=== PATIENT | female | born 1950 | race Caucasian/White ===

== ENCOUNTER 2016-07-10 11:20 | Inpatient (IN) | payer MEDICARE ==
[2016-07-10] VITALS (9 sets, daily range): BP systolic 90–134; BP diastolic 54–80
[~2016-07-10] VITALS: Ht 152.4 cm; Wt 69.2 kg
[2016-07-10] MEDS ORDERED: SODIUM CHLORIDE FLUSH 10ML SYR IVF ONE (12:30)
[2016-07-10] MEDS ORDERED: ACETAMINOPHEN 325 MG TABLET PO ONE (12:30)
[2016-07-10] MEDS ORDERED: HYDR12.53 PO (12:33)
[2016-07-10] MEDS ORDERED: MULT-717 PO (12:33)
[2016-07-10] MEDS ORDERED: MINO100T2 PO (12:33)
[2016-07-10] MEDS ORDERED: ASPI81TA14 PO (12:33)
[2016-07-10] MEDS ORDERED: CHOL40002 PO (12:33)
[2016-07-10] MEDS ORDERED: ATOR80TA PO (12:33)
[2016-07-10] MEDS ORDERED: SULF500T36 PO (12:33)
[2016-07-10] MEDS ORDERED: L.AC1CAP6 PO (12:33)
[2016-07-10] MEDS ORDERED: METF500T4 PO (12:33)
[2016-07-10] MEDS ORDERED: LOSA100T6 PO (12:33)
[2016-07-10] MEDS ORDERED: OMEG1CAP6 PO (12:33)
[2016-07-10] MEDS ORDERED: PARO20TA55 PO (12:33)
[2016-07-10] MEDS ORDERED: DICY10CA3 PO (12:33)
[2016-07-10] MEDS ORDERED: MELO-184 PO (12:33)
[2016-07-10] MEDS ORDERED: RANI150T8 PO (12:33)
[2016-07-10] MEDS ORDERED: CYAN250013 PO (12:33)
[2016-07-10] MEDS ORDERED: LEFL20TA16 PO (12:33)
[2016-07-10 13:03] LABS: BLOOD UREA NITROGEN 19 mg/dL (7-18)
[2016-07-10 13:06] LABS: ASPARTATE AMINO TRANSFERASE 15 U/L (15-37)
[2016-07-10] MEDS ORDERED: ACETAMINOPHEN 325 MG TABLET ONE (13:10)
[2016-07-10 13:26] LABS: ANISOCYTOSIS 1+; HYPOCHROMIA 1+; POLYCHROMASIA 1+
[2016-07-10 13:27] LABS: MICROCYTOSIS 1+; OVALOCYTES 1+
[2016-07-10 13:30] LABS: SMALL PLATELETS 1+
[2016-07-10] MEDS ORDERED: OMNIPAQUE 350 MG/ML, 100ML BOTTLE ONE (13:59)
[2016-07-10 14:42] LABS: PATH.CAST-FLAG NOT PRESENT; SPERM-FLAG NOT PRESENT; SRC-FLAG NOT PRESENT; XTAL-FLAG NOT PRESENT; YLC-FLAG NOT PRESENT
[2016-07-10] MEDS ORDERED: CIPROFLOXACIN/PMX 400MG/200ML 200 ML IV ONE (15:00)
[2016-07-10] MEDS ORDERED: METRONIDAZOLE PMX 500MG/100ML 100 ML IV ONE (15:00)
[2016-07-10] MEDS ORDERED: METRONIDAZOLE PMX 500MG/100ML 100 ML ONE (15:04)
[2016-07-10] MEDS ORDERED: morphine SULFATE 10 MG/ML, 1ML IVPush PRN (16:30)
[2016-07-10] MEDS: INSULIN ASPART 100 UNITS/ML, PEN SQ-INSULIN SCH ×2 (16:30→21:00)
[2016-07-10] MEDS ORDERED: DOCUSATE 100 MG CAPSULE PO PRN (16:30)
[2016-07-10] MEDS ORDERED: ONDANSETRON 2MG/ML, 2ML IVPush PRN (16:30)
[2016-07-10] MEDS ORDERED: ONDANSETRON ODT 4 MG PO PRN (16:30)
[2016-07-10] MEDS ORDERED: ACETAMINOPHEN 325 MG TABLET PO PRN (16:30)
[2016-07-10] MEDS ORDERED: ENALAPRILAT 1.25 MG/ML, 2ML IVPush PRN (16:30)
[2016-07-10 16:41] LABS: TOTAL IRON BINDING CAPACITY 157 mcg/dL (250-450)
[2016-07-10 17:07] LABS: TRANSFERRIN 125 mg/dL (200-360)
[2016-07-10] MEDS: SODIUM CHLORIDE 0.9% 1,000 ML IV SCH (18:25)
[2016-07-10] MEDS: MEROPENEM 1 GM in SODIUM CHLORIDE 0.9% 100 ML IV SCH (19:25)
[2016-07-10] MEDS: HYDROcodone/APAP 5/325 TABLET PO PRN (19:25)
[2016-07-10] MEDS: ATORVASTATIN 80 MG TABLET PO SCH (20:51)
[2016-07-10] MEDS: PANTOPRAZOLE 40 MG IV IVPush SCH (20:51)
[2016-07-10] MEDS: CYANOCOBALAMIN 1,000 MCG TABLET PO SCH (20:51)
[2016-07-10] MEDS: ZOLPIDEM 5MG TABLET PO SCH (21:00)
[2016-07-11] VITALS (8 sets, daily range): BP systolic 103–153; BP diastolic 61–85
[2016-07-11] MEDS: SODIUM CHLORIDE 0.9% 1,000 ML IV SCH ×3 (03:11→21:15)
[2016-07-11] MEDS: MEROPENEM 1 GM in SODIUM CHLORIDE 0.9% 100 ML IV SCH ×3 (03:11→21:15)
[2016-07-11] MEDS ORDERED: MORPHINE SULFATE 4 MG/ML, 1ML ONE (03:17)
[2016-07-11 03:43] LABS: BLOOD UREA NITROGEN 16 mg/dL (7-18)
[2016-07-11] MEDS: INSULIN ASPART 100 UNITS/ML, PEN SQ-INSULIN SCH ×4 (07:00→21:00)
[2016-07-11] MEDS ORDERED: TEMPLATE NON-FORMULARY MED. (Ranitidine Hcl** (Zantac**) 150 MG) PO SCH (09:00)
[2016-07-11] MEDS: CHOLECALCIFEROL 1,000 UNIT TABLET PO SCH (09:47)
[2016-07-11] MEDS: MULTIVITAMIN 1 TABLET PO SCH (09:48)
[2016-07-11] MEDS: CYANOCOBALAMIN 1,000 MCG TABLET PO SCH ×2 (09:48→21:14)
[2016-07-11] MEDS: PAROXETINE 20 MG TABLET PO SCH (09:48)
[2016-07-11] MEDS: PANTOPRAZOLE 40 MG IV IVPush SCH ×2 (09:49→21:13)
[2016-07-11] MEDS: LEFLUNOMIDE 20 MG TABLET PO SCH (09:57)
[2016-07-11] MEDS: FERROUS SULFATE 325 MG TABLET PO SCH ×2 (12:09→17:02)
[2016-07-11] MEDS: HYDROcodone/APAP 5/325 TABLET PO PRN (14:05)
[2016-07-11 15:15] LABS: OCCBLD OBC PASS
[2016-07-11] MEDS: ATORVASTATIN 80 MG TABLET PO SCH (21:13)
[2016-07-11] MEDS: ZOLPIDEM 5MG TABLET PO SCH (21:14)
[2016-07-12 00:52] VITALS: BP 132/73
[2016-07-12 02:39] LABS: BLOOD UREA NITROGEN 9 mg/dL (7-18)
[2016-07-12] MEDS: MEROPENEM 1 GM in SODIUM CHLORIDE 0.9% 100 ML IV SCH ×3 (03:15→19:21)
[2016-07-12] MEDS: SODIUM CHLORIDE 0.9% 1,000 ML IV SCH ×2 (05:22→12:59)
[2016-07-12] MEDS: INSULIN ASPART 100 UNITS/ML, PEN SQ-INSULIN SCH ×4 (07:00→20:40)
[2016-07-12 07:10] VITALS: BP 164/73
[2016-07-12] MEDS: LEFLUNOMIDE 20 MG TABLET PO SCH (08:37)
[2016-07-12] MEDS: FERROUS SULFATE 325 MG TABLET PO SCH ×3 (08:37→17:12)
[2016-07-12] MEDS: MULTIVITAMIN 1 TABLET PO SCH (08:37)
[2016-07-12] MEDS: PANTOPRAZOLE 40 MG IV IVPush SCH ×2 (08:37→20:39)
[2016-07-12] MEDS: CHOLECALCIFEROL 1,000 UNIT TABLET PO SCH (08:37)
[2016-07-12] MEDS: PAROXETINE 20 MG TABLET PO SCH (08:37)
[2016-07-12] MEDS: CYANOCOBALAMIN 1,000 MCG TABLET PO SCH ×2 (08:37→20:38)
[2016-07-12] MEDS: HYDROcodone/APAP 5/325 TABLET PO PRN ×2 (10:23→19:21)
[2016-07-12 12:30] VITALS: BP 148/83
[2016-07-12 19:48] VITALS: BP 163/89
[2016-07-12] MEDS: ATORVASTATIN 80 MG TABLET PO SCH (20:38)
[2016-07-12] MEDS: ZOLPIDEM 5MG TABLET PO SCH (20:51)
[2016-07-13 01:07] VITALS: BP 159/98
[2016-07-13] MEDS: MEROPENEM 1 GM in SODIUM CHLORIDE 0.9% 100 ML IV SCH ×3 (03:53→20:01)
[2016-07-13] MEDS: SODIUM CHLORIDE 0.9% 1,000 ML IV SCH ×2 (03:53→11:30)
[2016-07-13] MEDS ORDERED: GLUCAGON 1 MG IM PRN (06:00)
[2016-07-13] MEDS ORDERED: DEXTROSE 50%, 50ML SYRINGE IVPush PRN (06:00)
[2016-07-13] MEDS ORDERED: DEXTROSE 4 GM TAB.CHEW PO PRN (06:00)
[2016-07-13 06:25] VITALS: BP 159/92
[2016-07-13] MEDS: INSULIN ASPART 100 UNITS/ML, PEN SQ-INSULIN SCH ×4 (07:00→21:00)
[2016-07-13] MEDS: FERROUS SULFATE 325 MG TABLET PO SCH ×3 (08:36→17:39)
[2016-07-13] MEDS: LEFLUNOMIDE 20 MG TABLET PO SCH (08:36)
[2016-07-13] MEDS: PANTOPRAZOLE 40 MG IV IVPush SCH (08:37)
[2016-07-13] MEDS: CHOLECALCIFEROL 1,000 UNIT TABLET PO SCH (08:37)
[2016-07-13] MEDS: MULTIVITAMIN 1 TABLET PO SCH (08:37)
[2016-07-13] MEDS: CYANOCOBALAMIN 1,000 MCG TABLET PO SCH ×2 (08:37→21:11)
[2016-07-13] MEDS: SODIUM CHLORIDE FLUSH 10ML SYR IVF SCH ×2 (08:37→21:00)
[2016-07-13] MEDS: PAROXETINE 20 MG TABLET PO SCH (08:37)
[2016-07-13] MEDS ORDERED: OXYB5TAB PO (10:32)
[2016-07-13 12:10] VITALS: BP 163/92
[2016-07-13] MEDS: PANTOPROZOLE 40MG TABLET PO SCH (18:19)
[2016-07-13 19:54] VITALS: BP 169/93
[2016-07-13] MEDS: ZOLPIDEM 5MG TABLET PO SCH (21:11)
[2016-07-13] MEDS: ATORVASTATIN 80 MG TABLET PO SCH (21:11)
[2016-07-14 01:07] VITALS: BP 136/74
[2016-07-14 06:24] LABS: BLOOD UREA NITROGEN 7 mg/dL (7-18)
[2016-07-14] MEDS: PANTOPROZOLE 40MG TABLET PO SCH (08:15)
[2016-07-14] MEDS: MULTIVITAMIN 1 TABLET PO SCH (08:15)
[2016-07-14] MEDS: FERROUS SULFATE 325 MG TABLET PO SCH ×2 (08:15→11:35)
[2016-07-14] MEDS: PAROXETINE 20 MG TABLET PO SCH (08:15)
[2016-07-14] MEDS: CHOLECALCIFEROL 1,000 UNIT TABLET PO SCH (08:15)
[2016-07-14] MEDS: SODIUM CHLORIDE FLUSH 10ML SYR IVF SCH (09:00)
[2016-07-14] MEDS ORDERED: HYDROCHLOROTHIAZIDE 12.5 MG CAPSULE PO SCH (09:00)
[2016-07-14] MEDS ORDERED: LOSARTAN 50MG TABLET PO SCH (09:00)
[2016-07-14] MEDS: MEROPENEM 1 GM in SODIUM CHLORIDE 0.9% 100 ML IV SCH (11:35)
== END 2016-07-15 13:45 | disposition home or self-care (01) | DRG 871 ==
LOC: ED 13:27 → EDIP 16:16 → 4WST 17:53 → DCLOUNGE 07-14 15:45
PROVIDERS: ADMIT Internal Medicine; ATTEND Internal Medicine
PROC: 30233N1 Transfusion of Nonautologous Red Blood Cells into Peripheral Vein, Percutaneous Approach (ICD-10-PCS; principal; 2016-07-10)
PROC: 5A09357 Assistance with Respiratory Ventilation, Less than 24 Consecutive Hours, Continuous Positive Airway Pressure (ICD-10-PCS; 2016-07-14)
DX: A41.9 Sepsis, unspecified organism (principal); E43 Unspecified severe protein-calorie malnutrition; K57.20 Diverticulitis of large intestine with perforation and abscess without bleeding; K55.9 Vascular disorder of intestine, unspecified; E44.0 Moderate protein-calorie malnutrition; I10 Essential (primary) hypertension; E78.00 Pure hypercholesterolemia, unspecified; E11.9 Type 2 diabetes mellitus without complications; M06.9 Rheumatoid arthritis, unspecified; E78.5 Hyperlipidemia, unspecified; G89.29 Other chronic pain; D63.8 Anemia in other chronic diseases classified elsewhere; D75.89 Other specified diseases of blood and blood-forming organs; R80.9 Proteinuria, unspecified; R79.89 Other specified abnormal findings of blood chemistry; N30.10 Interstitial cystitis (chronic) without hematuria; Z87.891 Personal history of nicotine dependence; Z82.5 Family history of asthma and other chronic lower respiratory diseases; Z82.3 Family history of stroke; Z68.29 Body mass index [BMI] 29.0-29.9, adult
CPT/HCPCS: 36415; 36430; 71010; 74177; 80048; 80053; 81001; 81003; 82272; 82607; 82728; 82746; 82962; 83540; 83550; 83605; 83690; 84145; 84443; 84466; 85014; 85018; 85025; 85610; 85730; 86850; 86900; 86923; 87040; 87324; 93005; 96365; 96375; J0744; J2185; Q9967; C9113; J2270; J7030; P9016

== ENCOUNTER 2016-08-08 08:53 | Inpatient (IN) | payer MEDICARE ==
[~2016-08-08] VITALS: Ht 152.4 cm; Wt 68.1 kg
[~2016-08-08 08:53] MED LIST: ASPI81TA14 PO; ATOR80TA PO; CHOL40002 PO; CYAN250013 PO; DICY10CA3 PO; HYDR12.53 PO; L.AC1CAP6 PO; LEFL20TA16 PO; LOSA100T6 PO; MELO-184 PO; METF500T4 PO; MINO100T2 PO; MULT-717 PO; OMEG1CAP6 PO; OXYB5TAB PO; PARO20TA55 PO; RANI150T8 PO; SULF500T36 PO
[2016-08-08] MEDS ORDERED: LACTATED RINGERS 1,000 ML IV SCH (10:00)
[2016-08-08] MEDS ORDERED: FENTANYL PF 250 MCG/5ML ONE ×2 (10:10→13:54)
[2016-08-08] MEDS ORDERED: MIDAZOLAM 1 MG/ML, 2ML ONE (10:11)
[2016-08-08 10:12] VITALS: BP 158/89
[2016-08-08] MEDS ORDERED: OXYcodone 5 MG/5 ML ORAL.SOL UDC PO PRN (10:30)
[2016-08-08] MEDS ORDERED: ONDANSETRON 2MG/ML, 2ML IVPush PRN (10:30)
[2016-08-08] MEDS ORDERED: MEPERIDINE/PF 25MG/0.5ML IVPush PRN (10:30)
[2016-08-08] MEDS ORDERED: LABETALOL 5MG/ML, 20ML IV PRN (10:30)
[2016-08-08] MEDS ORDERED: PROMETHAZINE 25 MG/ML, 1ML IV PRN (10:30)
[2016-08-08] MEDS ORDERED: ACETAMINOPHEN 325 MG TABLET PO PRN (10:30)
[2016-08-08] MEDS ORDERED: hydrALAzine 20 MG/ML, 1ML IV PRN (10:30)
[2016-08-08] MEDS ORDERED: BUPIVACAINE/PF-EPI 0.5% 1:200K ONE (12:13)
[2016-08-08] MEDS ORDERED: NEOSTIGMINE 1 MG/ML, 10ML ONE (12:33)
[2016-08-08] MEDS ORDERED: ONDANSETRON 2MG/ML, 2ML ONE (12:33)
[2016-08-08] MEDS ORDERED: GLYCOPYRROLATE 0.2MG/1ML ONE (12:33)
[2016-08-08] MEDS ORDERED: CEFOTETAN 2 GM ONE (12:33)
[2016-08-08] MEDS ORDERED: PROPOFOL 10 MG/ML, 20ML ONE (12:33)
[2016-08-08] MEDS ORDERED: DEXAMETHASONE 4 MG/ML, 1ML ONE (12:33)
[2016-08-08] MEDS ORDERED: ROCURONIUM 10 MG/ML ONE (12:33)
[2016-08-08] MEDS ORDERED: INDOCYANINE GREEN 25 MG VIAL ONE (12:43)
[2016-08-08] MEDS ORDERED: HYDROmorphone 1 MG/ML, 1ML ONE (15:24)
[2016-08-08] MEDS ORDERED: FENTANYL PF 100 MCG/2ML ONE (15:24)
[2016-08-08] MEDS ORDERED: OXYcodone 5 MG/5 ML ORAL.SOL UDC ONE (15:25)
[2016-08-08] MEDS: HYDROmorphone 1 MG/ML, 1ML IV PRN ×2 (15:29→15:38)
[2016-08-08] MEDS: FENTANYL PF 100 MCG/2ML IV PRN ×2 (15:49→16:14)
[2016-08-08] MEDS ORDERED: DIPHENHYDRAMINE 25 MG CAPSULE PO PRN (18:00)
[2016-08-08] MEDS ORDERED: DIPHENHYDRAMINE 50 MG/ML, 1ML IV PRN (18:00)
[2016-08-08] MEDS ORDERED: morphine SULFATE 10 MG/ML, 1ML IV PRN (18:00)
[2016-08-08] MEDS ORDERED: POTASSIUM CHLORIDE 20 MEQ in SODIUM CHLORIDE 0.9% 1,000 ML IV SCH (18:00)
[2016-08-08] MEDS ORDERED: ONDANSETRON 2MG/ML, 2ML IV PRN (18:00)
[2016-08-08] MEDS: KETOROLAC 30 MG/1 ML IV SCH (18:18)
[2016-08-08 20:31] VITALS: BP 97/57
[2016-08-08] MEDS: ATORVASTATIN 80 MG TABLET PO SCH (21:10)
[2016-08-08] MEDS: DICYCLOMINE 10 MG CAPSULE PO SCH (21:10)
[2016-08-08] MEDS: OXYcodone/APAP 5/325MG TABLET PO PRN ×2 (21:10→21:53)
[2016-08-09 00:25] VITALS: BP 89/50
[2016-08-09] MEDS: KETOROLAC 30 MG/1 ML IV SCH ×4 (00:34→17:46)
[2016-08-09] MEDS: CEFOTETAN PMX 1GM/50ML 50 ML IVPB SCH ×2 (00:34→12:04)
[2016-08-09 06:04] LABS: BLOOD UREA NITROGEN 12 mg/dL (7-18)
[2016-08-09] MEDS: OXYcodone/APAP 5/325MG TABLET PO PRN ×3 (06:08→20:09)
[2016-08-09] MEDS: DICYCLOMINE 10 MG CAPSULE PO SCH ×4 (06:09→20:09)
[2016-08-09] MEDS: ASPIRIN 81 MG TABLET EC PO SCH (06:09)
[2016-08-09 07:28] VITALS: BP 91/61
[2016-08-09] MEDS: OXYBUTYNIN CHLORIDE 5 MG TABLET PO SCH (09:04)
[2016-08-09] MEDS: FAMOTIDINE 20 MG TABLET PO SCH (09:04)
[2016-08-09] MEDS: LOSARTAN 50MG TABLET PO SCH (09:04)
[2016-08-09] MEDS: ENOXAPARIN 40 MG/0.4 ML SQ SCH (09:04)
[2016-08-09] MEDS: HYDROCHLOROTHIAZIDE 12.5 MG CAPSULE PO SCH (09:04)
[2016-08-09] MEDS: PAROXETINE 20 MG TABLET PO SCH (09:04)
[2016-08-09] MEDS ORDERED: MAGNESIUM SULFATE PMX 2GM/50ML 50 ML IV ONE (10:30)
[2016-08-09 15:36] VITALS: BP 78/48
[2016-08-09 15:52] VITALS: BP 99/65
[2016-08-09 19:33] VITALS: BP 101/58
[2016-08-09] MEDS: ATORVASTATIN 80 MG TABLET PO SCH (20:09)
[2016-08-09] MEDS: NS + 20MEQ KCL 1,000 ML IV SCH (22:03)
[2016-08-10] MEDS: KETOROLAC 30 MG/1 ML IV SCH ×5 (00:33→23:30)
[2016-08-10 03:26] VITALS: BP 112/72
[2016-08-10 05:58] LABS: BLOOD UREA NITROGEN 9 mg/dL (7-18)
[2016-08-10] MEDS: ASPIRIN 81 MG TABLET EC PO SCH (06:42)
[2016-08-10] MEDS: DICYCLOMINE 10 MG CAPSULE PO SCH ×4 (06:42→23:00)
[2016-08-10] MEDS: NS + 20MEQ KCL 1,000 ML IV SCH (08:07)
[2016-08-10 09:52] VITALS: BP 122/76
[2016-08-10] MEDS: LOSARTAN 50MG TABLET PO SCH (10:23)
[2016-08-10] MEDS: HYDROCHLOROTHIAZIDE 12.5 MG CAPSULE PO SCH (10:23)
[2016-08-10] MEDS: OXYBUTYNIN CHLORIDE 5 MG TABLET PO SCH (10:23)
[2016-08-10] MEDS: OXYcodone/APAP 5/325MG TABLET PO PRN ×3 (10:23→23:00)
[2016-08-10] MEDS: ENOXAPARIN 40 MG/0.4 ML SQ SCH (10:24)
[2016-08-10] MEDS: PAROXETINE 20 MG TABLET PO SCH (11:30)
[2016-08-10] MEDS: FAMOTIDINE 20 MG TABLET PO SCH (11:30)
[2016-08-10 15:32] VITALS: BP 134/84
[2016-08-10 20:51] VITALS: BP 135/78
[2016-08-10] MEDS: ATORVASTATIN 80 MG TABLET PO SCH (20:57)
[2016-08-10] MEDS: AMOXICILLIN/CLAV 875-125MG TABLET PO SCH (20:57)
[2016-08-10] MEDS: SODIUM CHLORIDE FLUSH 10ML SYR IVF SCH (23:30)
[2016-08-11 01:22] VITALS: BP 112/71
[2016-08-11 05:31] LABS: BLOOD UREA NITROGEN 11 mg/dL (7-18)
[2016-08-11] MEDS: KETOROLAC 30 MG/1 ML IV SCH ×2 (05:41→11:01)
[2016-08-11] MEDS: DICYCLOMINE 10 MG CAPSULE PO SCH ×2 (06:26→11:01)
[2016-08-11] MEDS: ASPIRIN 81 MG TABLET EC PO SCH (06:27)
[2016-08-11] MEDS: OXYcodone/APAP 5/325MG TABLET PO PRN ×2 (06:30→13:45)
[2016-08-11 09:19] VITALS: BP 134/80
[2016-08-11] MEDS: AMOXICILLIN/CLAV 875-125MG TABLET PO SCH (10:14)
[2016-08-11] MEDS: OXYBUTYNIN CHLORIDE 5 MG TABLET PO SCH (10:15)
[2016-08-11] MEDS: SODIUM CHLORIDE FLUSH 10ML SYR IVF SCH (10:15)
[2016-08-11] MEDS: ENOXAPARIN 40 MG/0.4 ML SQ SCH (10:15)
[2016-08-11] MEDS: HYDROCHLOROTHIAZIDE 12.5 MG CAPSULE PO SCH (10:15)
[2016-08-11] MEDS: LOSARTAN 50MG TABLET PO SCH (10:15)
[2016-08-11] MEDS: PAROXETINE 20 MG TABLET PO SCH (10:15)
[2016-08-11] MEDS: FAMOTIDINE 20 MG TABLET PO SCH (10:15)
[2016-08-11 11:04] VITALS: BP 166/85
[2016-08-11] MEDS ORDERED: OXYC-302 PO (13:18)
[2016-08-11] MEDS ORDERED: AMOX1TAB64 PO (13:18)
== END 2016-08-11 13:46 | disposition home or self-care (01) | DRG 329 ==
LOC: ORIP 08:53 → 4NOR 17:09 → DCLOUNGE 08-11 12:20
PROVIDERS: ADMIT Colon & Rectal Surgery; ATTEND Colon & Rectal Surgery
PROC: 0W9J4ZZ Drainage of Pelvic Cavity, Percutaneous Endoscopic Approach (ICD-10-PCS; 2016-08-08)
PROC: 8E0W4CZ Robotic Assisted Procedure of Trunk Region, Percutaneous Endoscopic Approach (ICD-10-PCS; 2016-08-08)
PROC: 0DBM4ZZ Excision of Descending Colon, Percutaneous Endoscopic Approach (ICD-10-PCS; 2016-08-08)
PROC: 0DBP4ZZ Excision of Rectum, Percutaneous Endoscopic Approach (ICD-10-PCS; 2016-08-08)
PROC: 0DTN4ZZ Resection of Sigmoid Colon, Percutaneous Endoscopic Approach (ICD-10-PCS; principal; 2016-08-08 11:30)
DX: K57.20 Diverticulitis of large intestine with perforation and abscess without bleeding (principal); E43 Unspecified severe protein-calorie malnutrition; F32.9 Major depressive disorder, single episode, unspecified; E11.9 Type 2 diabetes mellitus without complications; E78.00 Pure hypercholesterolemia, unspecified; N73.9 Female pelvic inflammatory disease, unspecified; M06.9 Rheumatoid arthritis, unspecified; I10 Essential (primary) hypertension; G47.30 Sleep apnea, unspecified; Z82.61 Family history of arthritis; Z80.3 Family history of malignant neoplasm of breast; Z80.8 Family history of malignant neoplasm of other organs or systems; Z82.49 Family history of ischemic heart disease and other diseases of the circulatory system; Z83.2 Family history of diseases of the blood and blood-forming organs and certain disorders involving the immune mechanism; Z87.891 Personal history of nicotine dependence; Z79.899 Other long term (current) drug therapy
CPT/HCPCS: 36415; 80048; 82040; 82962; 83735; 85025; 86850; 86900; 87070; 87075; 87077; 87186; 87205; 88307; C1729; J1100; J1170; J1650; J1885; J2250; J2405; J2704; J2710; J3010; J3480; J3490; C1765; J3475; J7030; J7120; S0074

== ENCOUNTER 2016-08-19 15:14 | Emergency (ER) | payer MEDICARE ==
[~2016-08-19] VITALS: Ht 152.4 cm; Wt 65.0 kg
[~2016-08-19 15:14] MED LIST changes: +AMOX1TAB64 PO; +OXYC-302 PO
[2016-08-19 15:59] LABS: BLOOD UREA NITROGEN 9 mg/dL (7-18)
[2016-08-19] MEDS ORDERED: ONDANSETRON 2MG/ML, 2ML IVPush ONE (16:00)
[2016-08-19] MEDS ORDERED: SODIUM CHLORIDE FLUSH 10ML SYR IVF ONE (16:00)
[2016-08-19] MEDS ORDERED: SODIUM CHLORIDE 0.9% 1,000ML IVBOLUS ONE (16:00)
[2016-08-19] MEDS ORDERED: ONDANSETRON 2MG/ML, 2ML ONE (16:20)
[2016-08-19] MEDS ORDERED: OMNIPAQUE 350 MG/ML, 100ML BOTTLE ONE (17:37)
[2016-08-19 19:29] VITALS: BP 159/81
== END 2016-08-19 19:33 | disposition home or self-care (01) ==
LOC: ED 18:36
DX: R11.2 Nausea with vomiting, unspecified (principal); D53.9 Nutritional anemia, unspecified; G89.18 Other acute postprocedural pain; E11.9 Type 2 diabetes mellitus without complications; E78.5 Hyperlipidemia, unspecified; I10 Essential (primary) hypertension; M06.9 Rheumatoid arthritis, unspecified
CPT/HCPCS: 36415; 74177; 80048; 81003; 82040; 83605; 85025; 96361; 96374; 99285; J2405; J7030; Q9967

== ENCOUNTER → 2018-05-11 | Outpatient (CLI) | payer MEDICARE ==
[~2018-05-11] MED LIST changes: +HYDR12.517 PO; -HYDR12.53 PO; +LOSA100T14 PO; -LOSA100T6 PO; -MELO-184 PO; +MELO15TA24 PO; +METF500T17 PO; -METF500T4 PO; -PARO20TA55 PO; +PARO20TA98 PO; +RANI150T23 PO; -RANI150T8 PO
== END | disposition home or self-care (01) ==
LOC: CFH 13:47
PROVIDERS: ATTEND Licensed Practical Nurse
DX: Z12.2 Encounter for screening for malignant neoplasm of respiratory organs (principal); K44.9 Diaphragmatic hernia without obstruction or gangrene; I25.10 Atherosclerotic heart disease of native coronary artery without angina pectoris; I70.0 Atherosclerosis of aorta; M47.814 Spondylosis without myelopathy or radiculopathy, thoracic region; Z87.891 Personal history of nicotine dependence
CPT/HCPCS: G0297

== ENCOUNTER → 2019-03-25 | Outpatient (CLI) | payer MEDICARE ==
[~2019-03-25] MED LIST changes: +OXYB-39 PO; -OXYB5TAB PO; +RANI-467 PO; -RANI150T23 PO
== END | disposition home or self-care (01) ==
LOC: STAR 14:27
PROVIDERS: ATTEND Nurse Practitioner Family
DX: Z01.818 Encounter for other preprocedural examination (principal); R19.4 Change in bowel habit; R19.7 Diarrhea, unspecified; R63.4 Abnormal weight loss; K92.1 Melena; R00.8 Other abnormalities of heart beat
CPT/HCPCS: 93005

== ENCOUNTER → 2019-07-08 | Outpatient (CLI) | payer MEDICARE | END | disposition home or self-care (01) | LOC: CFH 14:25 | PROVIDERS: ATTEND Licensed Practical Nurse | DX: Z12.2 Encounter for screening for malignant neoplasm of respiratory organs (principal); Z87.891 Personal history of nicotine dependence; R91.8 Other nonspecific abnormal finding of lung field; I25.10 Atherosclerotic heart disease of native coronary artery without angina pectoris; N20.0 Calculus of kidney | CPT/HCPCS: G0297 ==